=== PATIENT | male | born 1955 | race Caucasian/White ===

== ENCOUNTER 2020-09-05 07:00 | Outpatient (CLI) | payer OTHER, SELFPAY ==
--- NOTE | 2020-09-05 07:11 | NMCV_ITS ---
NM bro perf SPECT r/s* [id number] Huy Cochran Age: 65 Gender: M : 1955 Exam Date: 09/05/2020 08:19 Ordering Phys: Elli Ortiz MD ([email or web address]) Technologist: WOJCIECH Devlin Exam Location: [facility] Indications: CHEST PAIN STRESS TEST Please see separate stress test report in [facility] for full findings IMAGE PROTOCOL Rest/Stress 1 Exercise Day Radiopharmaceutical Dose (mCi) Administration Site Administered by Rest: Tc-99m 11.0 IV WOJCIECH Ortiz Sestamibi Stress:Tc-99m 32.9 IV WOJCIECH Ortiz Sestamibi Rest: 05-Sep-2020 60 Discovery 630 Stress: 05-Sep-2020 30 Discovery 630 Radiopharmaceutical was injected at 87% maximum heart rate. Images obtained in supine and prone position. SPECT RESULTS Technical Quality: Excellent Raw Data Analysis: Normal Image Corrections: No attenuation or motion correction applied Summed Stress Score: 1 Summed Rest Score: 6 Summed Difference Score: 0 PERFUSION FINDINGS Small sized perfusion abnormality of mid to apical inferior, apical septal and apical lateral becerra on rest and stress images. FUNCTIONAL RESULTS (calculated via Gated SPECT) Stress Image LV EF (%): 52 Stress EDV (mL):116 TID: 0.82 Stress ESV (mL):56 FUNCTIONAL FINDINGS: The left ventricle is normal in size. Transient Ischemia Dilatation of 0.82. There is normal left ventricular systolic function. The left ventricular ejection fraction is normal with a value of 52%. There is normal left ventricular wall thickening. Normal end diastolic and end systolic volumes. IMPRESSIONS 1. Small sized predominantly fixed perfusion abnormality of mid to apical inferior, apical septal and apical lateral becerra. 2. This may suggest old myocardial infarction in right coronary artery/left anterior artery territory or attenuation artifact. 3. Overall left ventricular systolic function is normal without regional wall motion abnormalities, LVEF=52%. 4. No significant coronary ischemia based on this study. 5. No prior similar studies to compare. Elli Ortiz MD (Electronically Signed) Final Date: 05 September 2020 21:03 S
--- NOTE | 2020-09-05 07:11 | ECG_ITS ---
[facility] Test Date: 2020-09-05 Pat Name: Huy Cochran Department: Room: Gender: Male Manager Brand: : [id number] Requested By: Elli Ortiz Order Number: [id number] Quan MD: Elli Ortiz M.D. Interpretive Statements NAME OF STUDY: EXERCISE SESTAMIBI STRESS TEST INDICATION: Chest Pain PROCEDURE: At the baseline, the patient's blood pressure was 148/86 mm Hg with a heart rate of 66 bpm and oxygen saturation of 98%. The baseline electrocardiogram showed normal sinus rhythm with possible old anterior infarct. The patient exercised for 7 minutes and 2 seconds on a [standard Tal protocol]. Patient attained a maximum heart rate of 150 beats per minute( 98 % of the maximum predicted heart rate) with a blood pressure at the peak exercise of 217/75 mm Hg and oxygen saturation of 96%. The EKG at the peak exercise revealed sinus tachycardia with no significant ST-T wave changes. Patient did not have any chest pain or any significant cardiac arrhythmias with the exercise. The study was terminated due to exertional fatgue and shortness of breath. ??? During the recovery phase, there were no new changes. Isolated PVC's noted in recovery. ??? Blood pressure at the end of the recovery phase was 136/88 mm Hg with a heart rate of 83 beats per minute and oxygen saturation of 98%. ??? CONCLUSION: 1. Normal EKG response to treadmill exercise. 2. No exercise-induced chest pain or cardiac arrhythmia. 3. Good exercise tolerance for age, attained a maximum of 10.2 METs. Maximum VO2 of 35.7 ml/kg/min. 4. Baseline hypertension with hypertensive response to exercise. RESULTS TO HAIDER FIGUEROA Electronically Signed On 09-05-2020 21:47:16 CDT by Elli Ortiz M.D. [email or web address]
[2020-09-05 07:12] VITALS: BMI 28.5
[2020-09-05 09:29] VITALS: BP 136/88; PULSE 83
== END 2020-09-05 07:01 | disposition home or self-care (01) ==
LOC: CDL 07:03
PROVIDERS: Visit Provider Internal Medicine Cardiovascular Disease
DX: R07.9 Chest pain, unspecified (principal)
CPT/HCPCS: 78452; 93017; A9500